=== PATIENT | male | born 1970 | race Caucasian/White ===

== ENCOUNTER 2022-01-06 01:43 | Emergency (ER) | payer OTHER ==
[~2022-01-06] VITALS: Ht 172.7 cm; Wt 81.6 kg
[~2022-01-06 01:43] MED LIST: PERCOCET 5-3251 EACH PO
== END 2022-01-06 11:35 | disposition home or self-care (01) ==
LOC: ER 01:43
DX: M62.82 Rhabdomyolysis (principal); R53.81 Other malaise; R53.83 Other fatigue

== ENCOUNTER 2024-02-04 10:27 | Emergency (ER) | payer OTHER ==
[~2024-02-04] VITALS: Ht 172.7 cm; Wt 72.6 kg
[2024-02-04] MEDS ORDERED: TETANUS & DIPHTHERIA TOX,ADULT 0.5 ML VIAL IM STA (11:24)
[2024-02-04] MEDS ORDERED: CEFAZOLIN SODIUM 1,000 MG VIAL IM STA (11:24)
== END 2024-02-04 13:36 | disposition home or self-care (01) ==
LOC: ER 10:28
DX: S01.111A Laceration without foreign body of right eyelid and periocular area, initial encounter (principal); W18.39XA Other fall on same level, initial encounter; Y93.89 Activity, other specified; Y92.018 Other place in single-family (private) house as the place of occurrence of the external cause; Y99.9 Unspecified external cause status